=== PATIENT | female | born 2000 | race Caucasian/White ===

== ENCOUNTER → 2020-12-05 09:56 | Observation (INO) ==
[~2020-12-05 09:56] MED LIST: Benzocaine/Menthol 56 GM AEROSOL SPRAY TP PRN
== END | disposition home or self-care (01) ==
LOC: 1NENULAB
PROVIDERS: ADMIT Advanced Practice Midwife; ATTEND Advanced Practice Midwife

== ENCOUNTER → 2021-02-23 08:50 | Observation (INO) ==
[2021-02-23 08:42] LABS: Bilirubin,Urine Negative (Negative); Blood,Urine Negative (Negative); Clarity,Urine Clear (Clear); Color,Urine Light-Yellow (Yellow); Glucose,Urine (UA) Normal (Normal); Ketones,Urine Negative (Negative); Leukocyte Esterase,Urine Negative (Negative); Nitrite,Urine Negative (Negative); PH,Urine 6.5 pH Units (5.0-8.0); Protein,Urine Negative (Neg-Trace); Urobilinogen,Urine Normal (Normal)
[~2021-02-23 08:50] MED LIST changes: -Benzocaine/Menthol 56 GM AEROSOL SPRAY TP PRN; +Ondansetron ODT 4 MG TAB.RAPDIS SL ONE
== END | disposition home or self-care (01) ==
LOC: 1NENULAB
PROVIDERS: ADMIT Registered Nurse; ATTEND Registered Nurse

== ENCOUNTER 2021-03-04 21:56 | Inpatient (IN) ==
[2021-03-04] MEDS ORDERED: Lidocaine 1% 20 ML MDV INFILT PRN (21:58)
[2021-03-04] MEDS ORDERED: Famotidine 20 MG/2 ML VIAL IVP PRN (21:58)
[2021-03-04] MEDS ORDERED: *HR* Nalbuphine 10 MG/ML AMPUL IV PRN (21:58)
[2021-03-04] MEDS ORDERED: Ondansetron 4 MG/2 ML VIAL IVP PRN (21:58)
[2021-03-04] MEDS ORDERED: Azithromycin 500 MG in 0.9 % Sodium Chloride 250 ML IVPB PRN (21:58)
[2021-03-04] MEDS ORDERED: Naloxone 0.4 MG/ML INJ IVP PRN (21:58)
[2021-03-04] MEDS ORDERED: Metoclopramide 10 MG/2 ML VIAL IVP PRN (21:58)
[2021-03-04] MEDS ORDERED: Ringers Solution, Lactated 1,000 ML IVC SCH (22:00)
[2021-03-04 22:58] LABS: Basophils # 0.1 K/mcL (0.0-0.2); Basophils % 0.4 %; Hematocrit 37.9 % (35.3-44.9); Hemoglobin 12.4 g/dL (11.5-15.4); Immature Granulocytes % 2.8 % (0-4); Lymphocytes # 2.5 K/mcL (0.6-4.6); Lymphocytes % 14.5 %; Mean Corpuscular HGB Conc 32.7 g/dL (31.6-35.5); Mean Corpuscular Hemoglobin 29.5 pg (28.0-33.3); Monocytes # 0.9 K/mcL (0.0-1.3); Monocytes % 5.3 %; Neutrophils # 13.2 K/mcL (1.6-8.9); Platelet Count 256 K/mcL (140-400); Red Blood Count 4.21 M/mcL (3.82-4.97); Red Cell Distribution Width 14.5 % (11.5-14.5); White Blood Count 17.1 K/mcL (4.3-11.1)
[2021-03-04 23:07] LABS: Amphetamine Screen,Urine Negative ng/mL (Cutoff=1000); Barbiturate Screen,Urine Negative ng/mL (Cutoff=200); Benzodiazepines Screen,Urine Negative ng/mL (Cutoff=200); Cannabinoid Screen,Urine Negative ng/mL (Cutoff = 50); Cocaine Screen,Urine Negative ng/mL (Cutoff= 300); Opiate Screen,Urine Negative ng/mL (Cutoff=300); Phencyclidine Screen,Urine Negative ng/mL (Cutoff=25)
[2021-03-05] MEDS ORDERED: Acetaminophen 325 MG TABLET PO ONE ×2 (02:20→08:39)
[2021-03-05] MEDS ORDERED: EPHEDrine 50 MG/ML VIAL IVP PRN (07:26)
[2021-03-05] MEDS ORDERED: Epidural Premix (fent/bupiv) 110 ML EP SCH (07:30)
[2021-03-05] MEDS ORDERED: Oxytocin 20 units/ LR 1000 mL 20 UNIT/1,000 ML BAG IVC ONE (08:24)
[2021-03-05] MEDS: Oxytocin 20 units/ LR 1000 mL 20 UNIT/1,000 ML BAG IVC SCH (09:11)
[2021-03-05] MEDS ORDERED: miSOPROStoL 25 MCG TABLET PO PRN (13:32)
[2021-03-06] MEDS ORDERED: Acetaminophen 325 MG TABLET PO ONE (05:34)
[2021-03-06] MEDS: Oxytocin 20 units/ LR 1000 mL 20 UNIT/1,000 ML BAG IVC SCH (08:57)
[2021-03-06] MEDS ORDERED: Naloxone 0.4 MG/ML INJ IVP PRN (09:07)
[2021-03-06] MEDS ORDERED: 0.9 % Sodium Chloride 500 ML IVC PRN (09:07)
[2021-03-06] MEDS ORDERED: Bupivacaine-MPF 0.5% 25 ML, FentaNYL (PF) 250 MCG in 0.9 % Sodium Chloride 80 ML EP SCH (09:15)
[2021-03-06] MEDS ORDERED: EPHEDrine 50 MG/ML VIAL IVP PRN (10:03)
[2021-03-06] MEDS ORDERED: Epidural Premix (fent/bupiv) 110 ML EP SCH ×2 (10:15→13:30)
[2021-03-06] MEDS: Acetaminophen 325 MG TABLET PO PRN (12:06)
[2021-03-06] MEDS ORDERED: Ropivacaine/PF 0.2% 20 ML VIAL ONE (19:46)
[2021-03-06] MEDS ORDERED: Lidocaine/EPI 1:200k 2% PF 20 ML VIAL ONE (23:51)
[2021-03-07] MEDS: Acetaminophen 325 MG TABLET PO PRN (08:16)
[2021-03-07] MEDS ORDERED: Measles/Mumps/Rubella Vacc 0.5 ML VIAL SQ PRN (08:50)
[2021-03-07] MEDS ORDERED: Benzocaine/Menthol 56 GM AEROSOL SPRAY TP PRN (08:50)
[2021-03-07] MEDS ORDERED: Lanolin 7 G OINT...G. TP PRN (08:50)
[2021-03-07] MEDS ORDERED: Rho Immune Globulin 1,500 UNIT SYRINGE IM PRN (08:50)
[2021-03-07] MEDS ORDERED: Oxytocin 20 units/ LR 1000 mL 20 UNIT/1,000 ML BAG IVC ONE (08:50)
[2021-03-07] MEDS ORDERED: Sennosides 8.6 MG TABLET PO PRN (08:50)
[2021-03-07] MEDS ORDERED: Oxytocin 20 units/ LR 1000 mL 20 UNIT/1,000 ML BAG IVC SCH (08:50)
[2021-03-07] MEDS: Prenatal Vit/FA 1 EACH TABLET PO SCH (09:56)
[2021-03-07] MEDS: Ibuprofen 600 MG TABLET PO SCH ×3 (12:06→23:59)
[2021-03-07] MEDS: Acetaminophen 325 MG TABLET PO SCH ×2 (12:06→18:20)
[2021-03-08] MEDS: Ibuprofen 600 MG TABLET PO SCH ×3 (00:01→10:26)
[2021-03-08] MEDS: Acetaminophen 325 MG TABLET PO SCH ×3 (00:01→04:22)
[2021-03-08 05:06] LABS: Basophils # 0.1 K/mcL (0.0-0.2); Basophils % 0.3 %; Eosinophils # 0.1 K/mcL (0.0-0.6); Eosinophils % 0.5 %; Hematocrit 31.1 % (35.3-44.9); Immature Granulocytes % 1.2 % (0-4); Lymphocytes # 2.7 K/mcL (0.6-4.6); Lymphocytes % 11.3 %; Mean Corpuscular HGB Conc 33.1 g/dL (31.6-35.5); Mean Corpuscular Hemoglobin 29.8 pg (28.0-33.3); Mean Corpuscular Volume 89.9 fL (83.0-100.0); Monocytes # 1.4 K/mcL (0.0-1.3); Monocytes % 5.7 %; Neutrophils # 19.5 K/mcL (1.6-8.9); Platelet Count 206 K/mcL (140-400); Red Blood Count 3.46 M/mcL (3.82-4.97); White Blood Count 24.1 K/mcL (4.3-11.1)
[2021-03-08 05:07] LABS: Hemoglobin 10.3 g/dL (11.5-15.4)
[2021-03-08 07:48] VITALS: BP 102/69
[2021-03-08] MEDS: Prenatal Vit/FA 1 EACH TABLET PO SCH (07:55)
== END 2021-03-08 11:55 | disposition home or self-care (01) | DRG 560 ==
LOC: 1NENULAB 21:56 → 1NENUOBS 03-07 08:48
PROVIDERS: ADMIT Student in an Organized Health Care Education/Training Program; ATTEND Student in an Organized Health Care Education/Training Program